=== PATIENT | female | born 1960 | race Caucasian/White ===

== ENCOUNTER → 2018-01-08 | Outpatient (CLI) | payer BC ==
[~2018-01-08] MED LIST: ANGELIQ PO; BENADRYL25 M2 PO; CLARITIN 1010 MG/TAB PO; CRANBERRY FRUI405 MG PO; CYMBALTA 60MG60 MG PO; IMITREX100 MG PO; IRON90 MG PO; LEXAPRO 10MG10 MG PO; MAGNESIUM CITR100 MG PO; MULTIPLE VITAMI1 CAP PO; NASONEX SPRAY17 GM; NORCO 325 MG-51 TAB PO; TENORMIN 2525 MG/TAB PO; TREXIMET 500 MG1 TAB PO; VITAMIN B COMPL1 SGL PO; VITAMIN D1000 IU PO; ZOFRAN 4MG T4 MG/TAB PO; ZYRTEC5 MG PO
== END ==
LOC: COL.RAD 10:21
DX: R06.02 Shortness of breath (principal); R14.0 Abdominal distension (gaseous)
CPT/HCPCS: Q9967

== ENCOUNTER → 2018-01-22 | Outpatient (CLI) | payer BC | LOC: MC.RAD 14:19 | DX: Z12.31 Encounter for screening mammogram for malignant neoplasm of breast (principal) ==

== ENCOUNTER → 2018-12-09 | Outpatient (CLI) | payer BC | LOC: COL.RAD 11:15 | DX: M51.36 Other intervertebral disc degeneration, lumbar region (principal); M46.96 Unspecified inflammatory spondylopathy, lumbar region ==

== ENCOUNTER → 2018-12-28 | Outpatient (CLI) | payer BC | LOC: COL.RAD 12-15 09:45 | DX: M47.816 Spondylosis without myelopathy or radiculopathy, lumbar region (principal) ==

== ENCOUNTER → 2019-02-24 | Outpatient (CLI) | payer BC | LOC: MHCPAIN 13:19 | DX: G89.29 Other chronic pain (principal); M47.817 Spondylosis without myelopathy or radiculopathy, lumbosacral region; M54.16 Radiculopathy, lumbar region; M53.3 Sacrococcygeal disorders, not elsewhere classified | CPT/HCPCS: G0463 ==

== ENCOUNTER → 2019-05-25 | Outpatient (CLI) | payer BC | LOC: MC.RAD 15:45 | DX: Z12.31 Encounter for screening mammogram for malignant neoplasm of breast (principal) ==

== ENCOUNTER 2020-01-04 15:33 | Emergency (ER) | payer BC ==
[~2020-01-04] VITALS: Ht 165.1 cm; Wt 81.8 kg
[2020-01-04 16:02] VITALS: TEMP 97.6
[2020-01-04 16:52] LABS: BASO % 0.4 % (0.0-2.0); EOS # 0.1 (0.0-0.7); EOS % 0.7 % (0-4.0); GRAN # 8.8 (1.4-6.5); LYMPH # 1.2 (1.2-3.4); LYMPH % 10.9 % (20.0-51.0); MEAN CELL VOLUME 85 fl (80.0-100.0); MEAN CORPUSCULAR HEMOGLOBIN 28 pg (27.0-31.0); MEAN CORPUSCULAR HGB CONC 33 g/dl (33.0-37.0); MEAN PLATELET VOLUME 9.9 fl (7.4-10.4); MONO # 0.7 (0.1-0.6); MONO % 6.5 % (1.7-9.3); PLATELET COUNT 321 K/mm3 (130-400); RED BLOOD COUNT 4.31 M/mm3 (4.10-5.30); REDCELL DISTRIBUTION WIDTH-CV 13.7 % (11.5-14.5)
[2020-01-04 16:57] LABS: HEMATOCRIT 36.8 % (37.0-47.0)
[2020-01-04 17:06] LABS: ALANINE AMINOTRANSFERASE 21 U/L (4-34); ALBUMIN 4.1 gm/dL (3.5-5.0); ALKALINE PHOSPHATASE 75 U/L (50-136); ANION GAP 7 mmol/L (7-16); AST,SGOT 26 U/L (15-37); BILIRUBIN,TOTAL 0.4 mg/dL (0.0-1.0); BLOOD UREA NITROGEN 15 mg/dL (7-17); C-REACTIVE PROTEIN 1.2 mg/dL (0.0-0.9); CALCIUM 8.9 mg/dL (8.4-10.2); CARBON DIOXIDE 28 mmol/L (22-30); CHLORIDE 95 mmol/L (98-107); CREATININE, serum 1.12 (0.52-1.25); GLUCOSE 118 mg/dL (74-106); POTASSIUM 3.8 mmol/L (3.4-5.0); SODIUM 130 mmol/L (137-145); TOTAL PROTEIN 7.3 gm/dL (6.4-8.2)
[2020-01-04 17:18] LABS: TROPONIN-I < 0.012 ng/mL (0.000-0.035)
[2020-01-04 19:32] VITALS: BP 109/68; PULSE 71
== END 2020-01-04 20:17 | disposition home or self-care (01) ==
LOC: COL.ER 15:33
PROVIDERS: Emergency Medicine
DX: R42 Dizziness and giddiness (principal); Z86.79 Personal history of other diseases of the circulatory system; Z98.61 Coronary angioplasty status
CPT/HCPCS: J2060; J2405; J7030

== ENCOUNTER → 2020-05-19 | Outpatient (CLI) | payer BC | LOC: COL.RAD 13:07 | DX: M89.312 Hypertrophy of bone, left shoulder (principal) ==

== ENCOUNTER → 2021-10-23 | Outpatient (CLI) | payer BC | LOC: MC.RAD 10:00 | DX: Z12.31 Encounter for screening mammogram for malignant neoplasm of breast (principal) ==

== ENCOUNTER → 2024-02-10 | Outpatient (CLI) | payer BC | LOC: MC.RAD 12:42 | DX: Z12.31 Encounter for screening mammogram for malignant neoplasm of breast (principal) ==